=== PATIENT | female | born 1985 | race Two or more races ===

== ENCOUNTER 2018-04-28 22:27 | Emergency (ER) | payer OTHER ==
[~2018-04-28] VITALS: Ht 165.1 cm; Wt 81.6 kg
[2018-04-28 23:20] LABS: BASO % 0 % (0-3); EOS # 0.1 x10^3/uL (0.0-0.7); EOS % 2 % (0-3); HEMOGLOBIN 12.6 g/dL (12.0-15.5); LYMPH # 2.3 x10^3/uL (1.0-4.8); LYMPH % 29 % (24-48); MEAN CORPUSCULAR HEMOGLOBIN 30 pg (25-35); MEAN CORPUSCULAR HGB CONC 33 g/dL (31-37); MEAN CORPUSCULAR VOLUME 90 fL (79-100); MONO # 0.5 x10^3/uL (0.0-1.1); MONO % 6 % (0-9); NEUT % 63 % (31-73); PLATELET COUNT 225 x10^3/uL (140-400); RED BLOOD COUNT 4.23 x10^6/uL (3.50-5.40); RED CELL DISTRIBUTION WIDTH 13.6 % (11.5-14.5)
[2018-04-28 23:24] LABS: CALCIUM 8.7 mg/dL (8.5-10.1); CREATININE 0.7 mg/dL (0.6-1.0); GFR 95.8; POTASSIUM 3.8 mmol/L (3.5-5.1)
[2018-04-28] MEDS ORDERED: IV NORMAL SALINE 1000ML BAG 1,000 ML IV ONE (23:30)
[2018-04-28 23:31] LABS: ALBUMIN 3.5 g/dL (3.4-5.0); ALBUMIN/GLOBULIN RATIO 0.9 (1.0-1.7); MAGNESIUM 2.1 mg/dL (1.8-2.4); TOTAL BILIRUBIN 0.3 mg/dL (0.2-1.0); TOTAL PROTEIN 7.2 g/dL (6.4-8.2)
[2018-04-29 00:07] LABS: BILIRUBIN,URINE NEGATIVE (NEG); CLARITY,URINE CLEAR; COLOR,URINE YELLOW; NITRITE,URINE NEGATIVE (NEG); PH,URINE 5.5; PROTEIN,URINE NEGATIVE (NEG-TRACE); UROBILINOGEN,URINE 0.2 mg/dL (0.2 mg/dL)
[2018-04-29 00:14] LABS: BARBITURATES NEG (NEG); BENZODIAZEPINES NEG (NEG); CANNABINOIDS NEG (NEG); COCAINE NEG (NEG); METHADONE NEG (NEG); OPIATES NEG (NEG); PHENCYCLIDINE NEG (NEG)
[2018-04-29 00:26] LABS: AMPHETAMINE/METHAMPHETAMINE NEG (NEG)
[2018-04-29 01:07] LABS: BACTERIA,URINE 0 /HPF (0-FEW); RBC,URINE 0 /HPF (0-2); SQUAMOUS EPITHELIAL CELL,UR MOD /LPF
--- NOTE | 2018-04-29 01:15 | RAD ---
Single view chest dated 04/28/2018. No comparison available. Clinical data indication: Weakness. FINDINGS: Single upright portable exam performed. Heart and mediastinal contours are within normal limits. Lungs are somewhat hypoinflated but otherwise clear. No consolidation or pleural effusion. There are a few scattered calcified granuloma. IMPRESSION: No acute radiographic abnormality. Electronically signed by: Lopez Guidry MD (04/29/2018 1:12 AM) [facility]
--- NOTE | 2018-04-29 01:36 | PHYS DOC ---
Past Medical History Past Medical History: Hypothyroid Past Surgical History: No Surgical History Additional Information: Nonsmoker Alcohol Use: None Drug Use: None Adult General Chief Complaint Chief Complaint: WEAKNESS/GENERALIZED HPI HPI 32 y/o female presents with reports of sudden dizziness and generalized weakness and malaise that started at 2100. Denies pain. Denies trauma. Denies fever/chills. Denies ETOH or drug abuse. Denies . Review of Systems Review of Systems Constitutional: Denies fever or chills [] Eyes: Denies change in visual acuity, redness, or eye pain [] HENT: Denies nasal congestion or sore throat [] Respiratory: Denies cough or shortness of breath [] Cardiovascular: Denies chest pain or palpitations GI: Denies abdominal pain, nausea, vomiting, or diarrhea [] : Denies dysuria or hematuria [] Musculoskeletal: Denies back pain or joint pain [] Integument: Denies rash or skin lesions [] Neurologic: Denies headache or sensory changes, reports dizziness and generalized weakness [] Complete systems were reviewed and found to be within normal limits, except as documented in this note. Current Medications Current Medications Current Medications Medications (Trade) Dose Ordered Sig/Marcello Start Time Stop Time Status Last Admin Dose Admin Sodium Chloride 1,000 ml @ 1,000 mls/hr 1X ONCE 04/28/18 23:30 04/29/18 00:29 DC 04/28/18 23:46 1,000 MLS/HR Allergies Allergies Allergies Coded Allergies Type Severity Reaction Last Updated Verified No Known Drug Allergies 04/28/18 No Physical Exam Physical Exam Constitutional: Well developed, well nourished, no acute distress, non-toxic appearance. [] HENT: Normocephalic, atraumatic, oropharynx moist, nose normal. [] Eyes: PERRL, EOMI, conjunctiva normal, no discharge, no nystagmus noted. [] Neck: Normal range of motion, no tenderness, supple Cardiovascular: Heart rate regular rhythm, no murmur [] Lungs & Thorax: Bilateral breath sounds clear to auscultation [] Abdomen: Soft, no tenderness Skin: Warm, dry, no erythema, no rash. [] Extremities: No tenderness,, ROM intact, no edema. [] Neurologic: Alert and oriented X 3, normal motor function, normal sensory function, no focal deficits noted. [] Psychologic: Affect flat, judgement normal Current Patient Data Vital Signs Vital Signs Date Time Temp Pulse Resp B/P (MAP) Pulse Ox O2 Delivery O2 Flow Rate FiO2 04/29/18 01:55 80 12 100 04/28/18 22:27 97.8 117/73 (88) Room Air 97.8 Lab Values Laboratory Tests Test 04/28/18 22:43 04/28/18 23:50 White Blood Count 8.0 x10^3/uL (4.0-11.0) Red Blood Count 4.23 x10^6/uL (3.50-5.40) Hemoglobin 12.6 g/dL (12.0-15.5) Hematocrit 38.0 % (36.0-47.0) Mean Corpuscular Volume 90 fL (79-100) Mean Corpuscular Hemoglobin 30 pg (25-35) Mean Corpuscular Hemoglobin Concent 33 g/dL (31-37) Red Cell Distribution Width 13.6 % (11.5-14.5) Platelet Count 225 x10^3/uL (140-400) Neutrophils (%) (Auto) 63 % (31-73) Lymphocytes (%) (Auto) 29 % (24-48) Monocytes (%) (Auto) 6 % (0-9) Eosinophils (%) (Auto) 2 % (0-3) Basophils (%) (Auto) 0 % (0-3) Neutrophils # (Auto) 5.0 x10^3uL (1.8-7.7) Lymphocytes # (Auto) 2.3 x10^3/uL (1.0-4.8) Monocytes # (Auto) 0.5 x10^3/uL (0.0-1.1) Eosinophils # (Auto) 0.1 x10^3/uL (0.0-0.7) Basophils # (Auto) 0.0 x10^3/uL (0.0-0.2) Sodium Level 140 mmol/L (136-145) Potassium Level 3.8 mmol/L (3.5-5.1) Chloride Level 104 mmol/L (98-107) Carbon Dioxide Level 26 mmol/L (21-32) Anion Gap 10 (6-14) Blood Urea Nitrogen 15 mg/dL (7-20) Creatinine 0.7 mg/dL (0.6-1.0) Estimated GFR (Cockcroft-Gault) 95.8 BUN/Creatinine Ratio 21 (6-20) H Glucose Level 107 mg/dL (70-99) H Lactic Acid Level 1.2 mmol/L (0.4-2.0) Calcium Level 8.7 mg/dL (8.5-10.1) Magnesium Level 2.1 mg/dL (1.8-2.4) Total Bilirubin 0.3 mg/dL (0.2-1.0) Aspartate Amino Transferase (AST) 14 U/L (15-37) L Alanine Aminotransferase (ALT) 18 U/L (14-59) Alkaline Phosphatase 43 U/L (46-116) L Troponin I Quantitative < 0.017 ng/mL (0.000-0.055) Total Protein 7.2 g/dL (6.4-8.2) Albumin 3.5 g/dL (3.4-5.0) Albumin/Globulin Ratio 0.9 (1.0-1.7) L Ethyl Alcohol Level < 10 mg/dL (0-10) Urine Collection Type U cath Urine Color Yellow Urine Clarity Clear Urine pH 5.5 Urine Specific [place] 1.015 Urine Protein Negative mg/dL (NEG-TRACE) Urine Glucose (UA) Negative mg/dL (NEG) Urine Ketones (Stick) 15 mg/dL (NEG) Urine Blood Negative (NEG) Urine Nitrite Negative (NEG) Urine Bilirubin Negative (NEG) Urine Urobilinogen Dipstick 0.2 mg/dL (0.2 mg/dL) Urine Leukocyte Esterase Negative (NEG) Urine RBC 0 /HPF (0-2) Urine WBC 1-4 /HPF (0-4) Urine Squamous Epithelial Cells Mod /LPF Urine Bacteria 0 /HPF (0-FEW) Urine Mucus Slight /LPF Urine Opiates Screen Neg (NEG) Urine Methadone Screen Neg (NEG) Urine Barbiturates Neg (NEG) Urine Phencyclidine Screen Neg (NEG) Urine Amphetamine/Methamphetamine Neg (NEG) Urine Benzodiazepines Screen Neg (NEG) Urine Cocaine Screen Neg (NEG) Urine Cannabinoids Screen Neg (NEG) Urine Ethyl Alcohol Neg (NEG) Laboratory Tests 04/28/18 22:43 Laboratory Tests 04/28/18 22:43 EKG EKG @2249 NSR at 67bpm, Q wave III, nonspecific t wave inversion V2-V3, NO ST elevation Radiology/Procedures Radiology/Procedures PROCEDURE: PORTABLE CHEST 1V Single view chest dated 04/28/2018. No comparison available. Clinical data indication: Weakness. FINDINGS: Single upright portable exam performed. Heart and mediastinal contours are within normal limits. Lungs are somewhat hypoinflated but otherwise clear. No consolidation or pleural effusion. There are a few scattered calcified granuloma. IMPRESSION: No acute radiographic abnormality. Electronically signed by: Lopez Guidry MD (04/29/2018 1:12 AM) [facility] Course & Med Decision Making Course & Med Decision Making Pertinent Labs and Imaging studies reviewed. (See chart for details) Patient presents with report of generalized weakness and dizziness which started suddenly at 2100. Patient neurologically intact. No signs of trauma. No nystagmus appreciated. NIHSS 0. EKG stable. Labs obtained and posted to chart. H/H stable. Orthostatic VS stable. ETOH and UDS negative. UA negative for infectious process. CXR without acute process. IVF hydration given. Patient with interval improvement of symptoms. Patient stable for discharge with outpatient follow-up with PCP. Discussed findings and plan with patient, who acknowledge understanding and agreement. Dragon Disclaimer Dragon Disclaimer This electronic medical record was generated, in whole or in part, using a voice recognition dictation system. Departure Departure Impression: Primary Impression: Weakness Disposition: 01 HOME, SELF-CARE Condition: IMPROVED Referrals: UNKNOWN PCP NAME (PCP) Patient Instructions: Weakness, [id number] NIHSS Stroke Scale NIH Stroke Scale: NIH Stroke Scale Response (Comments) Value Level of Consciousness: 0 Alert/Responsive 0 LOC Questions: 0 Answers both correctly 0 LOC Commands: 0 Performs both tasks 0 Best Gaze: 0 Normal 0 Visual: 0 No visual loss 0 Facial Palsy: 0 Normal, symmetrical 0 Motor - Left Arm 0 No drift 0 Motor - Right Arm 0 No drift 0 Motor - Left Leg 0 No drift 0 Motor: Right Leg 0 No drift 0 Limb Ataxia: 0 Absent 0 Sensory: 0 No loss 0 Best Language: 0 Normal 0 Dysathria: 0 Normal 0 Extinction and Inattention: 0 Normal 0 Total 0 ACELOPEZ DO Apr 29, 2018 01:36
[2018-04-29 01:55] VITALS: BP 106/64
--- NOTE | 2018-04-29 06:47 | EKG ---
[facility] [address] [place] [address] Test Date: 2018-04-28 Test Time: 22:49:16 Pat Name: RALPH RANDALL Department: Room: Gender: F Photolithographer: : 1985 Requested By: SARAH ACE Order Number: [id number] Reading MD: Pastor Dalton MD Measurements Intervals [place] Rate: 67 P: 43 VA: 148 QRS: 26 QRSD: 84 T: 15 QT: 400 QTc: 426 Interpretive Statements SINUS RHYTHM Electronically Signed On 04-30-2018 11:33:39 FURNACE HAND by Pastor Dalton MD
== END 2018-04-29 02:15 | disposition home or self-care (01) ==
LOC: ER 22:27
DX: R53.1 Weakness (principal); R42 Dizziness and giddiness; E03.9 Hypothyroidism, unspecified
CPT/HCPCS: 36415; 51701; 71045; 80053; 80307; 81001; 83605; 83735; 84484; 85025; 93005; 96360; 99284; G0480; J7030